=== PATIENT | female | born 1950 | race Caucasian/White ===

== ENCOUNTER 2018-07-27 12:19 | Emergency (ER) | payer MEDICARE ==
--- NOTE | 2018-07-27 12:58 | RAD ---
XR Humerus Rt 2 View STANDARD: 07/27/2018 12:36 PM CLINICAL INDICATION: Pain, injury COMPARISON: None. FINDINGS: Fracture:Dislocated slightly comminuted fracture of the proximal metadiaphyseal region of the right h umerus is present. There is an avulsed greater tuberosity fracture fragment. Arthropathy:Mild arthropathy. Incidental findings:Soft tissue prominence IMPRESSION: 1. Comminuted proximal right humeral fracture.
[2018-07-27] MEDS ORDERED: HYDROcodone/Acetaminophen 5/325 mg Tablet ONE (13:18)
[2018-07-27] MEDS ORDERED: Ibuprofen 800 MG TAB ONE (13:18)
== END 2018-07-27 13:46 | disposition home or self-care (01) ==
LOC: EDBD 12:19 → MADERS 12:19
DX: S42.351A Displaced comminuted fracture of shaft of humerus, right arm, initial encounter for closed fracture (principal); I10 Essential (primary) hypertension; J45.909 Unspecified asthma, uncomplicated; Z79.899 Other long term (current) drug therapy; W18.30XA Fall on same level, unspecified, initial encounter